=== PATIENT | female | born 1955 | race Caucasian/White ===

== ENCOUNTER 2020-07-10 11:14 | Emergency (ER) | payer OTHER ==
[~2020-07-10] VITALS: Ht 167.6 cm; Wt 161.0 kg
[2020-07-10 11:22] VITALS: BP 173/85
--- NOTE | 2020-07-10 11:26 | NUR ---
65 YEAR OLD FEMALE BIBA FROM HOME FOR OVERDOSE. PER EMS PT HAD PINPOINT PUPILS, AND PT HAD TAKEN AN UNKNOWN PILL PER FAMILY. PT GIVEN 6MG NARCAN IN ROUTE. UPON ARRIVAL PT PLACED ON MONITOR, SPO2 95% ON 2L, RR 16. PT STATES SHE DOES NOT REMEMBER WHAT SHE TOOK. PT RESTING WITH EYES CLOSED, AROUSABLE TO VOICE, BREATHING EVEN AND UNLABORED, SKIN WARM AND DRY. BED IN LOWEST POSITION, LOCKED, BED RAIL UPX1. ERMD AWARE OF PT STATUS AT BEDSIDE. PMH - HTN, DM2 ALLERGIES - PCN
--- NOTE | 2020-07-10 11:54 | NUR ---
Pt taken to CT via [facility]
--- NOTE | 2020-07-10 12:04 | NUR ---
Pt returned from CT via [facility]
[2020-07-10 12:57] LABS: BASOPHILS # (AUTO) 0.1 K/uL (0.00-0.22); BASOPHILS % (AUTO) 0.4 % (0.0-2.0); EOSINOPHILS % (AUTO) 0.1 % (0.0-4.0); HEMATOCRIT 45.7 % (36-48); HEMOGLOBIN 14.6 g/dL (12.0-16.0); LYMPHOCYTES % (AUTO) 5.6 % (20.5-51.1); MEAN CORPUSCULAR HEMOGLOBIN 30 pg (27-31); MEAN CORPUSCULAR HGB CONC 32 g/dL (33-37); MEAN CORPUSCULAR VOLUME 94.8 fL (80-94); MONOCYTES # (AUTO) 0.5 K/uL (0.8-1.0); MONOCYTES % (AUTO) 3.2 % (1.7-9.3); NEUTROPHILS # (AUTO) 15.5 K/uL (1.8-7.7); NEUTROPHILS % (AUTO) 90.7 % (42.2-75.2); PLATELET COUNT (AUTO) 280 K/uL (140-450); RED BLOOD CELL COUNT(AUTO) 4.82 MIL/uL (4.20-5.40); RED CELL DISTRIBUTION WIDTH 13.8 % (11.6-13.7); WHITE BLOOD COUNT (AUTO) 17.1 K/uL (4.8-10.8)
--- NOTE | 2020-07-10 13:10 | NUR ---
PT STILL UNABLE TO URINATE WITH BEDPAN, ERMD MADE AWARE
[2020-07-10 13:13] LABS: ALBUMIN 3.3 g/dL (3.4-5.0); ANION GAP 13.9 (8-16); ASPARTATE AMINOTRANSFERASE 63 U/L (15-37); CARBON DIOXIDE 27.9 mmol/L (21-32); CHLORIDE 102 mmol/L (98-107); CREATININE 1.4 mg/dL (0.6-1.3); GFR ARICAN-AMERICAN 49 mL/min (>90); GLUCOSE 261 mg/dL (74-106); POTASSIUM 4.8 mmol/L (3.5-5.1); SODIUM SERUM 139 mmol/L (136-145); TOTAL BILIRUBIN 0.2 mg/dL (0.0-1.0); UREA NITROGEN, BLOOD 29 mg/dL (7-18)
[2020-07-10 13:14] LABS: ACETAMINOPHEN < 0.5 ug/ml (10-30); SALICYLATE < 2.8 mg/dL (2.8-20.0)
--- NOTE | 2020-07-10 14:25 | NUR ---
PT STATES SHE IS FINE WITH STRAIGHT CATH FOR URINE, ERMD MADE AWARE
--- NOTE | 2020-07-10 14:33 | NUR ---
PT ALERT AND AWAKE, BREATHING EVEN AND UNLABORED. XRAY AT BEDSIDE
[2020-07-10 14:36] LABS: BARBITURATE, URINE POSITIVE ng/ml (NEG <=200); BENZODIAZEPINE, URINE NEGATIVE ng/mL (NEG <=200); CANNABINOID, URINE NEGATIVE ng/mL (NEG <=50); COCAINE, URINE NEGATIVE ng/mL (NEG <=300); OPIATE, URINE NEGATIVE ng/mL (NEG <=2000); PHENCYCLIDINE SCREEN,URINE NEGATIVE ng/mL (NEG <=25)
--- NOTE | 2020-07-10 14:40 | NUR ---
ULTRASOUND AT BEDSIDE
--- NOTE | 2020-07-10 15:01 | NUR ---
straight cath performed for collection of urine. 150cc clear, yellow urine collected and sent to lab.
[2020-07-10 15:23] LABS: APPEARANCE,URINE CLEAR (CLEAR); BILIRUBIN,URINE NEGATIVE (NEGATIVE); BLOOD, URINE NEGATIVE (NEGATIVE); COLOR,URINE YELLOW (YELLOW); LEUKOCYTE ESTERASE ,URINE NEGATIVE (NEGATIVE); NITRITE, URINE NEGATIVE (NEGATIVE); UGLUCOSE NEGATIVE (NEGATIVE)
[2020-07-10] MEDS ORDERED: NACL 0.9% 500 ML IV ONE (16:05)
[2020-07-10] MEDS ORDERED: HYDROcodone/APAP 5/325 MG 1 TAB TAB PO ONE ×2 (17:10→20:05)
[2020-07-10] MEDS ORDERED: ceFAZolin 1,000 MG VIAL ONE (17:12)
--- NOTE | 2020-07-10 17:17 | NUR ---
Lactic acid 3.2-- critical value received from lab. Dr Henry made aware.
--- NOTE | 2020-07-10 17:45 | NUR ---
CONSENT FOR TRANSFER SIGNED BY PT
--- NOTE | 2020-07-10 18:48 | NUR ---
PT ALERT AND AWAKE, BREATHING EVEN AND UNLABORED. NO DISTRESS NOTED. WILL CONTINUE TO MONITOR.
--- NOTE | 2020-07-10 20:32 | NUR ---
TELEPHONE REPORT GIVEN TO JOSHUA HUERTA, AT [facility]. ALL QUESTIONS ANSWERED. RN AWARE FACILITATOR TIME IS 2100.
--- NOTE | 2020-07-10 21:15 | NUR ---
[facility] TRANSPORT AT BEDSIDE
--- NOTE | 2020-07-10 21:17 | NUR ---
GAVE REPORT TO [facility], ALL VSS, PT ALERT AND ORIENTED. PACKET AND COPY OF ALL FORMS GIVEN TO [facility].
--- NOTE | 2020-07-10 21:27 | NUR ---
PT TAKEN BY [facility]SPORT TO [facility] ROOM 531
[2020-07-10 21:35] VITALS: BP 158/79
--- NOTE | 2020-07-10 21:35 | NUR ---
PT TRANSPORTED TO [facility] IN STABLE CONDITION. TRANSFER OF CARE AT THIS TIME.
== END 2020-07-10 21:27 | disposition short-term general hospital (02) ==
LOC: MED 11:14
DX: T65.91XA Toxic effect of unspecified substance, accidental (unintentional), initial encounter (principal); L03.90 Cellulitis, unspecified; R41.82 Altered mental status, unspecified; E11.9 Type 2 diabetes mellitus without complications; I10 Essential (primary) hypertension; R09.02 Hypoxemia; Z88.0 Allergy status to penicillin
CPT/HCPCS: 36415; 70450; 71045; 80053; 80305; 81003; 83605; 84484; 85025; 87040; 87426; 90471; 90715; 93005; 93971; 96365; 99291; G0480; J0690; J7030; Q0092; 96361; 99285